=== PATIENT | female | born 1955 | race Two or more races ===

== ENCOUNTER 2017-12-26 22:00 | Inpatient (IN) | payer MEDICAID ==
[~2017-12-26] VITALS: Ht 167.6 cm; Wt 111.4 kg
[2017-12-26] MEDS ORDERED: ASPIRIN 325 MG TABLET PO STA (22:04)
[2017-12-26] MEDS ORDERED: MIDAZOLAM 1 MG/ML, 5ML ONE (22:16)
[2017-12-26] MEDS ORDERED: FENTANYL PF 100 MCG/2ML ONE (22:16)
[2017-12-26] MEDS ORDERED: VERAPAMIL 2.5 MG/ML, 2ML ONE (22:16)
[2017-12-26] MEDS ORDERED: TICAGRELOR 90 MG TABLET ONE (22:16)
[2017-12-26] MEDS ORDERED: HEPARIN 1,000 UNITS/ML, 10ML ONE (22:17)
[2017-12-26] MEDS ORDERED: LIDOCAINE-MPF 2%, 2ML ONE (22:17)
[2017-12-26] MEDS ORDERED: BIVALIRUDIN 250 MG ONE (22:17)
[2017-12-26 22:22] LABS: BASOPHILS # (AUTO) 0.07 x10^3/uL (0-0.1); BASOPHILS % (AUTO) 1 % (0-1); EOSINOPHILS % (AUTO) 3 % (1-7); LYMPHOCYTES # (AUTO) 1.92 x10^3/uL (1-3.4); LYMPHOCYTES % (AUTO) 30 % (22-44); MD NO; MEAN PLATELET VOLUME 10.1 fL (7.4-10.4); MONOCYTES # (AUTO) 0.41 x10^3/uL (0.2-0.8); MONOCYTES % (AUTO) 6 % (2-9); NEUTROPHILS # (AUTO) 3.82 x10^3/uL (1.8-6.8); NEUTROPHILS % (AUTO) 59 % (42-75); PLATELET COUNT 182 x10^3/uL (130-400)
[2017-12-26 22:34] LABS: INTERNATIONAL NORMALIZED RATIO 1.03 (0.93-1.1); PROTHROMBIN TIME 10.6 Seconds (9.6-11.5)
[2017-12-26 23:17] VITALS: BP 122/77
[2017-12-26] MEDS ORDERED: ONDANSETRON ODT 4 MG PO PRN (23:30)
[2017-12-26] MEDS ORDERED: LABETALOL 5MG/ML, 20ML IVPush PRN (23:30)
[2017-12-26 23:52] LABS: ANION GAP 6 mmol/L (5-15); CALCIUM 9.3 mg/dL (8.5-10.1); CHLORIDE 102 mmol/L (98-107); CREATININE 1.02 mg/dL (0.55-1.02)
[2017-12-27] MEDS: ATORVASTATIN 40 MG TABLET PO SCH ×2 (00:05→21:05)
[2017-12-27] MEDS: HEPARIN 5,000 UNITS/ML, 1ML SQ SCH ×3 (00:05→17:27)
[2017-12-27] MEDS: SODIUM CHLORIDE 0.9% 1,000 ML IV SCH ×3 (00:05→15:02)
[2017-12-27] MEDS ORDERED: OMNIPAQUE 350 MG/ML, 100ML BOTTLE ONE (00:38)
[2017-12-27] MEDS ORDERED: PREG100C PO (00:39)
[2017-12-27] MEDS ORDERED: GABA-827 PO (00:39)
[2017-12-27] MEDS ORDERED: LISI40TA PO (00:39)
[2017-12-27] MEDS ORDERED: INSU100I28 SC (00:39)
[2017-12-27] MEDS ORDERED: METF10007 PO (00:39)
[2017-12-27] MEDS: INSULIN LISPRO 100 UNITS/ML, PEN SQ-INSULIN SCH ×5 (00:52→21:04)
[2017-12-27] MEDS ORDERED: ACETAMINOPHEN 325 MG TABLET ONE (02:16)
[2017-12-27] MEDS ORDERED: ACETAMINOPHEN 325 MG TABLET PO ONE (02:30)
[2017-12-27 05:57] LABS: BASOPHILS # (AUTO) 0.03 x10^3/uL (0-0.1); BASOPHILS % (AUTO) 1 % (0-1); EOSINOPHILS # (AUTO) 0.25 x10^3/uL (0-0.4); EOSINOPHILS % (AUTO) 5 % (1-7); LYMPHOCYTES # (AUTO) 1.87 x10^3/uL (1-3.4); LYMPHOCYTES % (AUTO) 35 % (22-44); MD NO; MEAN CORPUSCULAR HGB CONC 33.1 g/dL (32.4-35.8); MEAN CORPUSCULAR VOLUME 87.5 fL (80-100); MEAN PLATELET VOLUME 9.7 fL (7.4-10.4); MONOCYTES % (AUTO) 7 % (2-9); NEUTROPHILS # (AUTO) 2.82 x10^3/uL (1.8-6.8); NEUTROPHILS % (AUTO) 53 % (42-75); PLATELET COUNT 159 x10^3/uL (130-400); RED CELL DISTRIBUTION WIDTH 16.4 % (9.6-15.2)
[2017-12-27 06:04] LABS: CALCIUM 8.9 mg/dL (8.5-10.1); CHLORIDE 102 mmol/L (98-107)
[2017-12-27 06:08] LABS: ANION GAP 7 mmol/L (5-15)
[2017-12-27] MEDS: ASPIRIN 81 MG TABLET EC PO SCH (06:25)
[2017-12-27 07:57] VITALS: BP 138/83
[2017-12-27] MEDS ORDERED: LISINOPRIL 10 MG TABLET PO SCH (09:00)
[2017-12-27] MEDS ORDERED: ATOR40TA78 PO (10:15)
[2017-12-27] MEDS ORDERED: INSU200I SQ-INSULIN (10:15)
[2017-12-27] MEDS ORDERED: DULO30CA2 PO (10:18)
[2017-12-27 10:54] LABS: CHOLESTEROL, TOTAL 85 mg/dL (140-239)
[2017-12-27 10:57] LABS: CHOL/HDL RATIO 2.2; HDL CHOL % 46 % (28-40); HDL CHOLESTEROL (DIRECT) 39 mg/dL (40-60); LDL CHOLESTEROL,CALCULATED 20 mg/dL (54-169); LDL/HDL RATIO 0.5 (0.5-3.0); TRIGLYCERIDES 131 mg/dL (50-200); TROPONIN I 0.461 ng/mL (0.000-0.045); VLDL CHOLESTEROL 26 mg/dL (0-25)
[2017-12-27] MEDS: INSULIN GLARGINE 100 UNITS/ML, PEN SQ-INSULIN SCH ×2 (11:46→21:04)
[2017-12-27] MEDS: GABAPENTIN 400 MG CAPSULE PO SCH ×3 (11:48→21:05)
[2017-12-27] MEDS: PREGABALIN 100 MG CAPSULE PO SCH ×3 (11:48→21:10)
[2017-12-27 13:06] LABS: HEMOGLOBIN A1C 11.7 % (4.2-6.3)
[2017-12-27 13:43] VITALS: BP 105/65
[2017-12-27 15:44] LABS: BILIRUBIN, DIRECT 0.2 mg/dL (0.1-0.2)
[2017-12-27 15:45] LABS: ALBUMIN 2.9 g/dL (3.4-5.0)
[2017-12-27 15:46] LABS: BILIRUBIN,INDIRECT 0.4 mg/dL (0.0-2.0); BILIRUBIN,TOTAL 0.6 mg/dL (0.2-1.0); TOTAL PROTEIN 7.1 g/dL (6.4-8.2)
[2017-12-27 19:04] VITALS: BP 123/72
[2017-12-27 20:59] LABS: MEAN CORPUSCULAR VOLUME 86.6 fL (80-100); RED BLOOD COUNT 4.22 x10^6/uL (3.82-5.3)
[2017-12-27 21:00] LABS: MEAN CORPUSCULAR HEMOGLOBIN 28.9 pg (27.0-34.8); MEAN CORPUSCULAR HGB CONC 33.4 g/dL (32.4-35.8); RED CELL DISTRIBUTION WIDTH 16.1 % (9.6-15.2)
[2017-12-28 02:05] VITALS: BP 100/61
[2017-12-28] MEDS: HEPARIN 5,000 UNITS/ML, 1ML SQ SCH ×3 (02:05→16:26)
[2017-12-28 05:25] LABS: CHLORIDE 106 mmol/L (98-107)
[2017-12-28 05:32] LABS: ALANINE AMINOTRANSFERASE 33 U/L (12-78); ALBUMIN 2.9 g/dL (3.4-5.0); ALKALINE PHOSPHATASE 87 U/L (45-117); ANION GAP 3 mmol/L (5-15); BILIRUBIN,TOTAL 1.1 mg/dL (0.2-1.0); CREATININE 0.96 mg/dL (0.55-1.02); TOTAL PROTEIN 7.2 g/dL (6.4-8.2)
[2017-12-28] MEDS: ASPIRIN 81 MG TABLET EC PO SCH (06:23)
[2017-12-28 06:53] VITALS: BP 110/71
[2017-12-28] MEDS: INSULIN LISPRO 100 UNITS/ML, PEN SQ-INSULIN SCH ×4 (07:00→21:08)
[2017-12-28] MEDS: GABAPENTIN 400 MG CAPSULE PO SCH ×3 (09:07→20:53)
[2017-12-28] MEDS: PREGABALIN 100 MG CAPSULE PO SCH ×3 (09:07→20:56)
[2017-12-28] MEDS: LISINOPRIL 20 MG TABLET PO SCH (09:07)
[2017-12-28] MEDS: INSULIN GLARGINE 100 UNITS/ML, PEN SQ-INSULIN SCH ×2 (09:15→21:09)
[2017-12-28] MEDS: PANTOPROZOLE 40MG TABLET PO SCH ×2 (10:05→20:54)
[2017-12-28] MEDS ORDERED: MAALOX/HYOSCYAMINE/LIDOCAINE 45 ML BTL PO PRN (10:30)
[2017-12-28 14:18] VITALS: BP 94/58
[2017-12-28 19:56] VITALS: BP 102/66
[2017-12-28] MEDS: ATORVASTATIN 40 MG TABLET PO SCH (20:53)
[2017-12-29] MEDS: HEPARIN 5,000 UNITS/ML, 1ML SQ SCH ×2 (01:12→08:36)
[2017-12-29 01:20] VITALS: BP 110/62
[2017-12-29] MEDS: ASPIRIN 81 MG TABLET EC PO SCH (05:40)
[2017-12-29 05:42] LABS: BASOPHILS # (AUTO) 0.04 x10^3/uL (0-0.1); BASOPHILS % (AUTO) 1 % (0-1); EOSINOPHILS # (AUTO) 0.31 x10^3/uL (0-0.4); EOSINOPHILS % (AUTO) 5 % (1-7); LYMPHOCYTES # (AUTO) 2.41 x10^3/uL (1-3.4); LYMPHOCYTES % (AUTO) 40 % (22-44); MD NO; MEAN CORPUSCULAR HEMOGLOBIN 29.5 pg (27.0-34.8); MEAN CORPUSCULAR HGB CONC 33.4 g/dL (32.4-35.8); MEAN CORPUSCULAR VOLUME 88.2 fL (80-100); MEAN PLATELET VOLUME 9.4 fL (7.4-10.4); MONOCYTES # (AUTO) 0.37 x10^3/uL (0.2-0.8); MONOCYTES % (AUTO) 6 % (2-9); NEUTROPHILS # (AUTO) 2.93 x10^3/uL (1.8-6.8); NEUTROPHILS % (AUTO) 48 % (42-75); PLATELET COUNT 174 x10^3/uL (130-400); RED BLOOD COUNT 4.17 x10^6/uL (3.82-5.3); RED CELL DISTRIBUTION WIDTH 16.1 % (9.6-15.2)
[2017-12-29 06:00] LABS: CHLORIDE 104 mmol/L (98-107)
[2017-12-29 06:08] LABS: ALANINE AMINOTRANSFERASE 36 U/L (12-78); ALKALINE PHOSPHATASE 86 U/L (45-117); ANION GAP 9 mmol/L (5-15); BILIRUBIN,TOTAL 0.6 mg/dL (0.2-1.0); CALCIUM 9.1 mg/dL (8.5-10.1); CREATININE 0.94 mg/dL (0.55-1.02); TOTAL PROTEIN 7.4 g/dL (6.4-8.2)
[2017-12-29] MEDS: INSULIN LISPRO 100 UNITS/ML, PEN SQ-INSULIN SCH ×2 (07:00→11:03)
[2017-12-29 07:27] VITALS: BP 118/74
[2017-12-29] MEDS: GABAPENTIN 400 MG CAPSULE PO SCH (08:35)
[2017-12-29] MEDS: PREGABALIN 100 MG CAPSULE PO SCH (08:36)
[2017-12-29] MEDS: LISINOPRIL 20 MG TABLET PO SCH (08:36)
[2017-12-29] MEDS: INSULIN GLARGINE 100 UNITS/ML, PEN SQ-INSULIN SCH (08:36)
[2017-12-29] MEDS: PANTOPROZOLE 40MG TABLET PO SCH (10:58)
[2017-12-29 13:14] VITALS: BP 106/65
[2017-12-29] MEDS ORDERED: LISI40TA PO (15:29)
[2017-12-29] MEDS ORDERED: AMOX-291 PO (15:29)
[2017-12-29] MEDS ORDERED: PANT40TA5 PO (15:29)
[2017-12-29] MEDS ORDERED: ASPI-621 PO (15:29)
[2017-12-29] MEDS ORDERED: METR500T PO (15:29)
[2017-12-29] MEDS ORDERED: CLARITHROMYCIN 500 MG TABLET PO SCH (21:00)
[2017-12-29] MEDS ORDERED: AMOXICILLIN 500 MG CAPSULE PO SCH (21:00)
[2017-12-30] MEDS ORDERED: PANTOPROZOLE 40MG TABLET PO SCH (09:00)
== END 2017-12-29 17:06 | disposition home or self-care (01) | DRG 392 ==
LOC: EDSEX 22:00 → ED 22:30 → EDIP 22:31 → 5SO 23:26 → DCLOUNGE 12-29 17:06
PROVIDERS: ADMIT Family Medicine; ATTEND Family Medicine
PROC: 4A023N7 Measurement of Cardiac Sampling and Pressure, Left Heart, Percutaneous Approach (ICD-10-PCS; principal; 2017-12-26)
PROC: B2111ZZ Fluoroscopy of Multiple Coronary Arteries using Low Osmolar Contrast (ICD-10-PCS; 2017-12-26)
PROC: B2151ZZ Fluoroscopy of Left Heart using Low Osmolar Contrast (ICD-10-PCS; 2017-12-26)
DX: K21.9 Gastro-esophageal reflux disease without esophagitis (principal); E46 Unspecified protein-calorie malnutrition; D64.9 Anemia, unspecified; B96.81 Helicobacter pylori [H. pylori] as the cause of diseases classified elsewhere; E11.65 Type 2 diabetes mellitus with hyperglycemia; E66.01 Morbid (severe) obesity due to excess calories; E78.5 Hyperlipidemia, unspecified; F80.81 Childhood onset fluency disorder; E11.42 Type 2 diabetes mellitus with diabetic polyneuropathy; I11.9 Hypertensive heart disease without heart failure; I25.10 Atherosclerotic heart disease of native coronary artery without angina pectoris; Z68.39 Body mass index [BMI] 39.0-39.9, adult; Z87.891 Personal history of nicotine dependence; Z90.49 Acquired absence of other specified parts of digestive tract; Z79.84 Long term (current) use of oral hypoglycemic drugs
CPT/HCPCS: 36415; 71045; 71275; 76700; 80047; 80048; 80053; 80061; 80076; 82962; 83036; 83690; 84484; 85025; 85610; 85730; 86677; 93005; 93306; 93458; 99156; 99291; C1769; C1894; G0378; J0583; J1644; J2250; J3010; J3490; Q9967; C1887; J1815; J7030